=== PATIENT | male | born 1955 | race Caucasian/White ===

== ENCOUNTER 2017-03-22 12:02 | Emergency (ER) | payer OTHER ==
[~2017-03-22] VITALS: Ht 172.7 cm; Wt 90.7 kg
[2017-03-22] MEDS ORDERED: IV NORMAL SALINE 1000ML BAG 1,000 ML IV SCH (12:38)
[2017-03-22] MEDS ORDERED: fentaNYL PF VIAL 100 MCG/2 ML VIAL IV PRN (12:45)
[2017-03-22] MEDS ORDERED: KETOROLAC TROMETHAMINE 30 MG/ML INJ. IV ONE (12:45)
[2017-03-22] MEDS ORDERED: ONDANSETRON PF 4 MG/2 ML VIAL. IV ONE (12:45)
[2017-03-22 12:55] LABS: BASO # 0.1 x10^3/uL (0.0-0.2); BASO % 1 % (0-3); EOS % 3 % (0-3); HEMATOCRIT 42.4 % (39.0-53.0); HEMOGLOBIN 14.8 g/dL (13.0-17.5); LYMPH % 21 % (24-48); MEAN CORPUSCULAR HEMOGLOBIN 31 pg (25-35); MEAN CORPUSCULAR HGB CONC 35 g/dL (31-37); MEAN CORPUSCULAR VOLUME 89 fL (79-100); MONO % 6 % (0-9); NEUT % 69 % (31-73); PLATELET COUNT 175 x10^3/uL (140-400); RED BLOOD COUNT 4.76 x10^6/uL (4.30-5.70); RED CELL DISTRIBUTION WIDTH 13.3 % (11.5-14.5); WHITE BLOOD COUNT 9.5 x10^3/uL (4.0-11.0)
[2017-03-22 12:59] LABS: CALCIUM 8.8 mg/dL (8.5-10.1); CREATININE 1.2 mg/dL (0.7-1.3); POTASSIUM 3.3 mmol/L (3.5-5.1)
[2017-03-22 13:02] LABS: BILIRUBIN,URINE NEGATIVE (NEG); GLUCOSE,URINE NEGATIVE (NEG); NITRITE,URINE NEGATIVE (NEG); PROTEIN,URINE NEGATIVE (NEG-TRACE); UROBILINOGEN,URINE 0.2 mg/dL (0.2 mg/dL)
[2017-03-22 13:03] LABS: ALBUMIN 3.7 g/dL (3.4-5.0); TOTAL BILIRUBIN 0.8 mg/dL (0.2-1.0); TOTAL PROTEIN 7.3 g/dL (6.4-8.2)
--- NOTE | 2017-03-22 13:05 | ED.ADGEN ---
Past Medical History Past Medical History: GERD, Hypertension, Kidney Stone Additional Past Medical Histor: high cholesterol Past Surgical History: No Surgical History Alcohol Use: Occasionally Drug Use: None Adult General Chief Complaint Chief Complaint: FLANK PAIN HPI HPI Patient is a 61 year old man, history of hyperlipidemia, hypertension, GERD, recurrent renal calculi, who presents emergency Department with complaint of left-sided flank pain. Patient states pain began Friday, has been "moving up and down" in his back, is consistent with previous episodes of renal calculi. Patient states that previously he has passed gallstones without issue, denies any history of urinary tract infections. Denies any fevers, any chills, any nausea, any vomiting, any injuries, denies any hematuria, dysuria, or difficulty passing urine. States he has not taken anything for pain today prior to come to the ED. Review of Systems Review of Systems Constitutional: Denies fever or chills. [] Eyes: Denies change in visual acuity. [] HENT: Denies nasal congestion or sore throat. [] Respiratory: Denies cough or shortness of breath. [] Cardiovascular: Denies chest pain or edema. [] GI: Denies abdominal pain, nausea, vomiting, bloody stools or diarrhea. [] : Denies dysuria. [] Musculoskeletal: Denies back pain or joint pain. [] Integument: Denies rash. [] Neurologic: Denies headache, focal weakness or sensory changes. [] Endocrine: Denies polyuria or polydipsia. [] Lymphatic: Denies swollen glands. [] Psychiatric: Denies depression or anxiety. [] Current Medications Current Medications Current Medications Medications (Trade) Dose Ordered Sig/Ngoc Start Time Stop Time Status Last Admin Dose Admin Acetaminophen/ Hydrocodone Bitart (Lortab 7.5/325) 1 tab 1X ONCE 03/22/17 14:15 03/22/17 14:16 DC 03/22/17 14:24 1 TAB Fentanyl Citrate (Fentanyl 2ml Vial) 50 mcg PRN Q15MIN PRN 03/22/17 12:45 03/22/17 15:18 DC 03/22/17 13:18 50 MCG Ketorolac Tromethamine (Toradol) 10 mg 1X ONCE 03/22/17 12:45 03/22/17 12:46 DC 03/22/17 13:13 10 MG Ondansetron HCl (Zofran) 4 mg 1X ONCE 03/22/17 12:45 03/22/17 12:46 DC 03/22/17 13:15 4 MG Sodium Chloride 1,000 ml @ 1,000 mls/hr Q1H 03/22/17 12:38 03/22/17 13:37 DC 03/22/17 12:51 1,000 MLS/HR Tamsulosin HCl (Flomax) 0.4 mg 1X ONCE 03/22/17 14:15 03/22/17 14:16 DC 03/22/17 14:24 0.4 MG Allergies Allergies Allergies Coded Allergies Type Severity Reaction Last Updated Verified lisinopril Adverse Reaction Intermediate passes out 03/22/17 Yes Physical Exam Physical Exam Constitutional: Well developed, well nourished, no acute distress, non-toxic appearance. [] HENT: Normocephalic, atraumatic, bilateral external ears normal, oropharynx moist, no oral exudates, nose normal. [] Eyes: PERRLA, EOMI, conjunctiva normal, no discharge. [] Neck: Normal range of motion, no tenderness, supple, no stridor. [] Cardiovascular:Heart rate regular rhythm, no murmur, S1, S2, rubs or gallops. [] Lungs & Thorax: Bilateral breath sounds clear to auscultation, no wheezing, rhonchi, rales. No chest wall crepitus or tenderness. [] Abdomen: Bowel sounds normal, soft, no tenderness, no rebound, rigidity, no guarding, no masses, no pulsatile masses. [] Skin: Warm, dry, no erythema, no rash. [] Back: No tenderness, positive for left-sided CVA tenderness. [] Extremities: No tenderness, no cyanosis, no clubbing, ROM intact, no edema. [ Negative Homans sign.] Neurologic: Alert and oriented X 3, normal motor function, normal sensory function, no focal deficits noted. [] Psychologic: Affect normal, judgement normal, mood normal. [] Current Patient Data Vital Signs Vital Signs Date Time Temp Pulse Resp B/P (MAP) Pulse Ox O2 Delivery O2 Flow Rate FiO2 03/22/17 14:37 63 16 125/64 (84) 96 Room Air 03/22/17 12:25 97.5 97.5 Lab Values Laboratory Tests Test 03/22/17 12:40 White Blood Count 9.5 x10^3/uL (4.0-11.0) Red Blood Count 4.76 x10^6/uL (4.30-5.70) Hemoglobin 14.8 g/dL (13.0-17.5) Hematocrit 42.4 % (39.0-53.0) Mean Corpuscular Volume 89 fL (79-100) Mean Corpuscular Hemoglobin 31 pg (25-35) Mean Corpuscular Hemoglobin Concent 35 g/dL (31-37) Red Cell Distribution Width 13.3 % (11.5-14.5) Platelet Count 175 x10^3/uL (140-400) Neutrophils (%) (Auto) 69 % (31-73) Lymphocytes (%) (Auto) 21 % (24-48) L Monocytes (%) (Auto) 6 % (0-9) Eosinophils (%) (Auto) 3 % (0-3) Basophils (%) (Auto) 1 % (0-3) Neutrophils # (Auto) 6.6 x10^3uL (1.8-7.7) Lymphocytes # (Auto) 2.0 x10^3/uL (1.0-4.8) Monocytes # (Auto) 0.5 x10^3/uL (0.0-1.1) Eosinophils # (Auto) 0.3 x10^3/uL (0.0-0.7) Basophils # (Auto) 0.1 x10^3/uL (0.0-0.2) Urine Collection Type Unknown Urine Color Yellow Urine Clarity Clear Urine pH 6.0 Urine Specific Tyro 1.015 Urine Protein Negative mg/dL (NEG-TRACE) Urine Glucose (UA) Negative mg/dL (NEG) Urine Ketones (Stick) Negative mg/dL (NEG) Urine Blood Negative (NEG) Urine Nitrite Negative (NEG) Urine Bilirubin Negative (NEG) Urine Urobilinogen Dipstick 0.2 mg/dL (0.2 mg/dL) Urine Leukocyte Esterase Negative (NEG) Urine RBC 1-2 /HPF (0-2) Urine WBC Occ /HPF (0-4) Urine Squamous Epithelial Cells Occ /LPF Urine Bacteria 0 /HPF (0-FEW) Urine Mucus Slight /LPF Sodium Level 140 mmol/L (136-145) Potassium Level 3.3 mmol/L (3.5-5.1) L Chloride Level 102 mmol/L (98-107) Carbon Dioxide Level 30 mmol/L (21-32) Anion Gap 8 (6-14) Blood Urea Nitrogen 21 mg/dL (8-26) Creatinine 1.2 mg/dL (0.7-1.3) Estimated GFR (Cockcroft-Gault) 62.0 BUN/Creatinine Ratio 18 (6-20) Glucose Level 129 mg/dL (70-99) H Calcium Level 8.8 mg/dL (8.5-10.1) Total Bilirubin 0.8 mg/dL (0.2-1.0) Aspartate Amino Transferase (AST) 30 U/L (15-37) Alanine Aminotransferase (ALT) 44 U/L (16-63) Alkaline Phosphatase 110 U/L (46-116) Total Protein 7.3 g/dL (6.4-8.2) Albumin 3.7 g/dL (3.4-5.0) Albumin/Globulin Ratio 1.0 (1.0-1.7) Laboratory Tests 03/22/17 12:40 Laboratory Tests 03/22/17 12:40 EKG EKG Not indicated. [] Radiology/Procedures Radiology/Procedures [][facility] [address] [facility] [place] [address] IMAGING REPORT Signed PATIENT: MASOUD GUERRA ACCOUNT: [id number] : 1955 LOCATION: ER AGE: 61 SEX: M EXAM STATUS: REG ER ORD. PHYSICIAN: JESSICA BHATTI DO REASON: Flank pain/hx renal calculi PROCEDURE: CT ABDOMEN PELVIS WO CONTRAST CT STUDY OF THE ABDOMEN AND PELVIS WITHOUT CONTRAST Clinical indications: Flank pain. History of renal calculi. Technique: Noncontrast helical CT scanning of the abdomen and pelvis was performed. Without contrast, the sensitivity to detect organ pathology and GI tract pathology is decreased. PQRS Compliance Statement: One or more of the following individualized dose reduction techniques were utilized for this examination: 1. Automated exposure control 2. Adjustment of the mA and/or kV according to patient size 3. Use of iterative reconstruction technique Comparison: September 02, 2009. Findings: The liver and spleen and pancreas are homogeneous in appearance on this noncontrast study. The gallbladder is normal. No extra hepatic biliary ductal dilatation is seen. No adrenal mass is seen. There is a small right renal cyst anteriorly. Multiple small punctate renal stones are seen on the right side and one small punctate renal stone is seen on the left side.. No hydronephrosis or hydroureter is seen on either side. No ureteral stone is evident. Urinary bladder wall is smooth. No focal aneurysmal dilatation of the abdominal aorta is seen. No enlarged abdominal or pelvic lymphadenopathy is seen. The appendix is normal. The terminal ileum is unremarkable. A small hiatal hernia is seen. No obstructive bowel pattern is seen. No free fluid or free air or mesenteric inflammatory change is seen. No lung base consolidation is seen. No osteolytic process is seen. There is a mild compression deformity of T11 which is unchanged. IMPRESSION: Multiple nonobstructing punctate renal stones are seen on the right side. Only one punctate nonobstructing stone is seen on the left side. No hydronephrosis or hydroureter or ureteral stone is seen. Small hiatal hernia. Stable mild compression fracture of T11. No acute abnormality of the abdomen or pelvis is seen. DICTATED and SIGNED BY: COMFORT BARBOZA MD DATE: 03/22/17 1342 CC: JESSICA BHATTI DO; GEOVANNA ZEE MD ~ Course & Med Decision Making Course & Med Decision Making Pertinent Labs and Imaging studies reviewed. (See chart for details) Patient's examination and history is concerning for recurrent renal calculi, with left-sided flank pain. After discussion at bedside, will proceed with CT imaging without contrast to identify renal calculi, possible obstruction, any other occult cause the patient's pain. Patient is agreeable this plan, receiving antiemetics and pain medication in the ED along with IV fluids. Patient resting comfortably on reevaluation, CT of the abdomen and pelvis reveals multiple small nonobstructing stones in both left and right renal pelvis , no current stones in the ureters, or evidence of hydronephrosis or hydroureter identified. Patient's laboratory studies were also unremarkable. Discussed with patient that his symptoms are consistent with a likely passed stone, and there is no evidence of acutely concerning findings. Patient states that he is relieved with these findings, is agreeable to trialing oral medication for pain, which would be presumed to be residual after passing the stone. Patient tolerated oral meds in the ED, without issue. We discussed concerning symptoms that prompt return to the ED, and follow-up with his primary care provider. Patient voiced understanding and agreement, discharged home with his in stable condition with plan and precautions as stated. Dragon Disclaimer Dragon Disclaimer This electronic medical record was generated, in whole or in part, using a voice recognition dictation system. Departure Impression: Primary Impression: Lt flank pain Disposition: HOME, SELF-CARE Condition: IMPROVED Scripts Tamsulosin Hcl (FLOMAX) 0.4 Mg Cap.er.24h 1 CAP PO DAILY, #3 CAP 0 Refills Prov: JESSICA BHATTI DO 03/22/17 Oxycodone/Apap 5-325 (PERCOCET 5-325 MG TABLET) 1 Each Tablet 1 TAB PO QID Y for PAIN, #9 TAB Prov: JESSICA BHATTI DO 03/22/17 Naproxen (NAPROXEN) 250 Mg Tablet 250 MG PO BID Y for PAIN, #10 Prov: JESSICA BHATTI DO 03/22/17 JESSICA BHATTI DO Mar 22, 2017 13:05
[2017-03-22 13:10] LABS: BACTERIA,URINE 0 /HPF (0-FEW); SQUAMOUS EPITHELIAL CELL,UR OCC /LPF; WBC,URINE OCC /HPF (0-4)
--- NOTE | 2017-03-22 13:55 | RAD ---
CT STUDY OF THE ABDOMEN AND PELVIS WITHOUT CONTRAST Clinical indications: Flank pain. History of renal calculi. Technique: Noncontrast helical CT scanning of the abdomen and pelvis was performed. Without contrast, the sensitivity to detect organ pathology and GI tract pathology is decreased. PQRS Compliance Statement: One or more of the following individualized dose reduction techniques were utilized for this examination: 1. Automated exposure control 2. Adjustment of the mA and/or kV according to patient size 3. Use of iterative reconstruction technique Comparison: September 02, 2009. Findings: The liver and spleen and pancreas are homogeneous in appearance on this noncontrast study. The gallbladder is normal. No extra hepatic biliary ductal dilatation is seen. No adrenal mass is seen. There is a small right renal cyst anteriorly. Multiple small punctate renal stones are seen on the right side and one small punctate renal stone is seen on the left side.. No hydronephrosis or hydroureter is seen on either side. No ureteral stone is evident. Urinary bladder wall is smooth. No focal aneurysmal dilatation of the abdominal aorta is seen. No enlarged abdominal or pelvic lymphadenopathy is seen. The appendix is normal. The terminal ileum is unremarkable. A small hiatal hernia is seen. No obstructive bowel pattern is seen. No free fluid or free air or mesenteric inflammatory change is seen. No lung base consolidation is seen. No osteolytic process is seen. There is a mild compression deformity of T11 which is unchanged. IMPRESSION: Multiple nonobstructing punctate renal stones are seen on the right side. Only one punctate nonobstructing stone is seen on the left side. No hydronephrosis or hydroureter or ureteral stone is seen. Small hiatal hernia. Stable mild compression fracture of T11. No acute abnormality of the abdomen or pelvis is seen.
[2017-03-22] MEDS ORDERED: TAMSULOSIN 0.4 MG CAP.ER.24H. PO ONE (14:15)
[2017-03-22] MEDS ORDERED: HYDROcodone/APAP 7.5/325MG 1 TAB TABLET PO ONE (14:15)
[2017-03-22 14:37] VITALS: BP 125/64
[2017-03-22] MEDS ORDERED: NAPR250T2 PO (15:08)
[2017-03-22] MEDS ORDERED: TAMS0.4C97 PO (15:08)
[2017-03-22] MEDS ORDERED: OXYC-323 PO (15:08)
== END 2017-03-22 15:04 | disposition home or self-care (01) ==
LOC: ER 12:02
DX: R10.9 Unspecified abdominal pain (principal); K44.9 Diaphragmatic hernia without obstruction or gangrene; E78.00 Pure hypercholesterolemia, unspecified; K21.9 Gastro-esophageal reflux disease without esophagitis; I10 Essential (primary) hypertension; Z88.8 Allergy status to other drugs, medicaments and biological substances; Z87.442 Personal history of urinary calculi
CPT/HCPCS: 36415; 74176; 80053; 81001; 85027; 96361; 96374; 96375; 99285; J1885; J2405; J3010; J7030